=== PATIENT | female | born 1960 | race Caucasian/White ===

== ENCOUNTER 2016-07-18 13:15 | Emergency (ER) | payer MEDICARE, MEDICAID ==
[~2016-07-18 13:15] MED LIST: ABILIFY30 M1 PO; ADDERALL 2020 MG/TAB PO; AMITIZA24 MC1 PO; BENZTROPINE MESY1 M1 PO; CYCLOBENZAPRINE10 M1 PO; CYMBALTA60 M1 PO; DEPAKOTE ER500 MG PO; DITROPAN5 MG PO; GEODON20 M1 PO; GEODON60 M1 PO; HALDOL5 MG/TAB PO; HALOPERIDOL5 M1 PO; LUNESTA3 M1 PO; MOBIC15 M2 PO; MULTIVITAMINS1 EAC6 PO; NEXIUM40 M1 PO; NORCO 5-325 TA1 EACH PO; OXYCONTIN20 M2 PO; SENNA-S TABLET1 EAC3 PO; SKELAXIN800 MG PO; STRATTERA60 MG PO; TRAZODONE HCL150 MG PO; TRAZODONE HCL50 M1 PO; VESICARE10 M1 PO; VITAMIN D3400 UNI5 PO; ZANAFLEX4 M2 PO
[2016-07-18] MEDS ORDERED: HYDROCODON-ACE1 EA17 PO (14:01)
[2016-07-18] MEDS ORDERED: NYSTATIN100000 UNI SSW ×2 (14:02→15:08)
[2016-07-18] MEDS ORDERED: CYCLOBENZAPRINE10 M1 PO (14:06)
[2016-07-18] MEDS ORDERED: IBUPROFEN800 M1 PO (14:06)
[2016-07-18] MEDS ORDERED: MECLIZINE HCL25 M3 PO ×2 (14:07→15:12)
[2016-07-18] MEDS ORDERED: XANAX0.5 M1 PO (14:09)
[2016-07-18] MEDS ORDERED: HYSINGLA ER20 MG PO ×2 (14:10→15:11)
[2016-07-18] MEDS ORDERED: HYSINGLA ER30 MG PO ×2 (14:10→15:10)
[2016-07-18] MEDS ORDERED: ZOCOR20 M1 PO (14:11)
[2016-07-18] MEDS ORDERED: MYRBETRIQ25 M1 PO (14:11)
[2016-07-18] MEDS ORDERED: DICYCLOMINE HCL20 M1 PO (14:11)
[2016-07-18] MEDS ORDERED: ADDERALL XR 3030 M1 PO ×2 (14:12→14:19)
[2016-07-18] MEDS ORDERED: MOVANTIK25 MG PO (14:13)
[2016-07-18] MEDS ORDERED: XALATAN2.5 M1 OP ×2 (14:13→15:11)
[2016-07-18] MEDS ORDERED: SAVELLA100 M1 PO ×2 (14:13→15:10)
[2016-07-18] MEDS ORDERED: CALCIUM CARBON600 M2 PO (14:20)
[2016-07-18] MEDS ORDERED: COLACE100 M1 PO (14:20)
[2016-07-18] MEDS ORDERED: TAB-A-VITE1 EAC1 PO (14:21)
[2016-07-18] MEDS ORDERED: VITAMIN C500 M3 PO (14:22)
[2016-07-18] MEDS ORDERED: VITAMIN D-32000 UNI3 PO (14:23)
[2016-07-18 14:56] LABS: BASO % 0.5 % (0-2); EOS % 4.7 % (0-7); EOSINOPHIL ABSOLUTE COUNT 0.4 tho/cmm (0.0-0.7); HCT-HEMATOCRIT 38.1 % (34.0-49.0); HGB-HEMOGLOBIN 12.3 gm/dl (12.0-15.5); IMMATURE GRANULOCYTES ABSOLUTE 0.02 tho/cmm (0-0.03); IMMATURE GRANULOCYTES PERCENT 0.3 % (0-0.3); LYMPH % 27.6 % (20-45); LYMPH ABSOLUTE COUNT 2.1 tho/cmm (0.8-4.5); MCH (MEAN CORPUSCULAR HGB) 28.4 pg (28.0-32.0); MCHC MEAN CORPUSCULAR HGB CONC 32.3 % (32.0-36.0); MEAN PLATELET VOLUME 8.7 cmc (9.4-12.4); MONO % 6.1 % (0-12); MONOCYTE ABSOLUTE COUNT 0.5 tho/cmm (0.0-1.2); NEUTROPHIL ABSOLUTE COUNT 4.7 tho/cmm (1.6-8.0); NEUTROPHIL-AUTOMATED 4.7 tho/cmm (1.6-8.0); NEUTROPHILS % 60.8 % (40-80); PLATELET COUNT 460 tho/cmm (150-450); RED BLOOD COUNT 4.33 mil/cmm (4.00-5.20); RED CELL DISTRIBUTION WIDTH 13.4 % (12.4-16.4); WHITE BLOOD COUNT 7.7 tho/cmm (4.0-10.0)
[2016-07-18 15:07] LABS: ANION GAP 11 mmol/L (0-20); BLOOD UREA NITROGEN 13 mg/dl (6-24); CALCIUM 9.7 mg/dl (8.5-10.5); CARBON DIOXIDE-VENOUS 33 mmol/L (22-32); CHLORIDE 100 mmol/l (96-110); GLUCOSE 93 mg/dL (70-110); MAGNESIUM 2.2 mg/dl (1.8-2.6); POTASSIUM 4.3 mmol/L (3.7-5.1); SODIUM 140 mmol/L (135-145); eGFR VALUE FOR BLACK >90 mL/Min
[2016-11-17] MEDS ORDERED: KEFLEX500 M4 PO (06:59)
== END 2016-07-18 15:39 | disposition other institution (70) ==
LOC: EDMED 13:15
PROVIDERS: Emergency Medicine
DX: K59.00 Constipation, unspecified (principal); K56.7 Ileus, unspecified; F17.210 Nicotine dependence, cigarettes, uncomplicated; Z98.890 Other specified postprocedural states